=== PATIENT | male | born 1990 | race Caucasian/White ===

== ENCOUNTER 2020-10-06 11:15 | Emergency (ER) | payer OTHER ==
[~2020-10-06] VITALS: Ht 180.3 cm; Wt 91.0 kg
[2020-10-06] MEDS ORDERED: IBUPROFEN 400MG TABLET PO ONE (12:45)
[2020-10-06 13:30] VITALS: BP 108/64
[2020-10-06] MEDS ORDERED: IBUP-2028 MT (13:53)
== END 2020-10-06 14:12 | disposition home or self-care (01) ==
LOC: ER 11:15
DX: S62.511A Displaced fracture of proximal phalanx of right thumb, initial encounter for closed fracture (principal); V19.3XXA Pedal cyclist (driver) (passenger) injured in unspecified nontraffic accident, initial encounter; Y93.55 Activity, bike riding; Y92.9 Unspecified place or not applicable
CPT/HCPCS: 29125; 71045; 73130; 73562; 99284